=== PATIENT | female | born 1995 | race African-American/Black ===

== ENCOUNTER 2021-03-28 00:53 | Emergency (ER) | payer OTHER, SELFPAY ==
--- NOTE | ~2021-03-28 | XR_ITS ---
EXAMINATION: XR soft tissue neck INDICATION: Sore throat status post choking TECHNIQUE: AP and lateral views of the neck are obtained. COMPARISON: None available FINDINGS: No radiopaque foreign body is identified. The prevertebral soft tissues are normal. There i s straightening of the cervical spine which can be positional or due to muscular spasm. IMPRESSION: 1. No acute abnormality identified. Reviewed, dictated and finalized at location A.
[2021-03-28 01:07] VITALS: BP 127/84; PULSE 95; RESP 22; TEMP 36.6; O2SAT 100
--- NOTE | 2021-03-28 02:34 | PC.NURSE ---
No active vomiting. no s/s of distress. remains in wr awaiting available ED bed.
[2021-03-28] MEDS: BELLADONNA ALK/PHENOB ELIX 10 ML, MAG HYDROX/ALUMINUM HYD/SIMETH 30 ML, LIDOCAINE HCL 2... PO (03:28)
--- NOTE | 2021-03-28 04:29 | ED.GENADULT ---
HPI - General Adult General Chief complaint: Unspecified Stated complaint: vomiting after choking on a piece of sausage at di Time Seen by Provider: 03/28/21 03:07 History of Present Illness HPI narrative: Patient is a 25-year-old female presents the emergency department with chief complaint of choked on sausage. The patient reports this evening she was smoking some marijuana and also had taken some THC oil and was eating some sausage the patient states that it was a big sausage and she did not chew appropriately. The patient states that when EMS picked her up she still had the sausage stuck in her throat but when she arrived to the emergency department she vomited and cleared the sausage out of her throat reports she is able to swallow now patient states that she has some irritation in her throat that hurts whenever she swallows but she has had some irritation since she choked on some chicken about a year ago and caused a slight esophageal perforation. The patient states that she has been told that she needs to follow-up with a GI doctor but has not followed up with 1. Related Data Home Medications Medication Instructions Recorded Confirmed No Home Medications 03/28/21 03/28/21 Allergies Allergy/AdvReac Type Severity Reaction Status Date / Time No Known Allergies Allergy Verified 03/28/21 01:15 Review of Systems Review of Systems: A 10 system review of systems was completed on the patient and is negative except for what is stated in the HPI. Nursing and ancillary documentation was reviewed. Exam Narrative: GENERAL: Well-appearing, well-nourished, and in no acute distress. HEAD: Normocephalic, atraumatic. EYES: PERRLA and EOMI. ENT: Nares clear, no rhinorrhea or epistaxis. Mucous membranes moist. NECK: Supple. CHEST: Clear to auscultation. No respiratory distress. HEART: Regular rate and rhythm. No murmur heard. Normal peripheral pulses. ABDOMEN: Soft, nontender, nondistended, normal active bowel sounds. EXTREMITIES: Normal range of motion. No edema. SKIN: Warm, dry, no rash. NEURO: No focal deficits. Alert and oriented x3. PSYCH: Normal mood and affect. Course Vital Signs Vital signs: Vital Signs Temperature 36.6 C 03/28/21 01:07 Pulse Rate 95 03/28/21 01:07 Respiratory Rate 22 H 03/28/21 01:07 Blood Pressure 127/84 03/28/21 01:07 Pulse Oximetry 100 03/28/21 01:07 Temperature 36.6 C 03/28/21 01:07 Pulse Rate 95 03/28/21 01:07 Respiratory Rate 22 H 03/28/21 01:07 Blood Pressure 127/84 03/28/21 01:07 Pulse Oximetry 100 03/28/21 01:07 Medical Decision Making Vital Signs Vital Signs: Vital Signs Temperature 36.6 C 03/28/21 01:07 Pulse Rate 95 03/28/21 01:07 Respiratory Rate 22 H 03/28/21 01:07 Blood Pressure 127/84 03/28/21 01:07 Pulse Oximetry 100 03/28/21 01:07 Temperature 36.6 C 03/28/21 01:07 Pulse Rate 95 03/28/21 01:07 Respiratory Rate 22 H 03/28/21 01:07 Blood Pressure 127/84 03/28/21 01:07 Pulse Oximetry 100 03/28/21 01:07 Discharge Plan Discharge Clinical Impression: Sensation of foreign body in esophagus Patient Disposition: Home, Self-Care Condition: Stable Instructions: Antibiotic Form, Esophageal Foreign Body (ED) Prescriptions: No Action No Home Medications RF: 0 Follow-up/Referrals: PHYSICIAN,PHONE REPRESENTATIVE [Primary Care Provider] - Lalo Rodriguez MD [Physician] - Time of Disposition: 04:33
[2021-03-28 04:40] VITALS: BP 113/70; PULSE 60; RESP 14; O2SAT 97
== END 2021-03-28 04:39 | disposition home or self-care (01) ==
PROVIDERS: Emergency Provider Emergency Medicine
DX: T17.228A Food in pharynx causing other injury, initial encounter (principal)
CPT/HCPCS: 70360; 99283; A9270